=== PATIENT | male | born 2000 | race African-American/Black ===

== ENCOUNTER 2021-01-17 06:20 | Emergency (ER) | payer BC | END 2021-01-17 15:26 | disposition home or self-care (01) | LOC: ERS 06:20 | DX: S02.19XA Other fracture of base of skull, initial encounter for closed fracture (principal); S02.2XXA Fracture of nasal bones, initial encounter for closed fracture; Y04.8XXA Assault by other bodily force, initial encounter | CPT/HCPCS: 70450; 70486 ==

== ENCOUNTER 2023-11-20 22:17 | Emergency (ER) | payer BC, SELFPAY ==
[2023-11-20] MEDS ORDERED: Ondansetron PF 4 MG/2 ML Vial ONE (23:25)
[2023-11-21 00:03] LABS: #Basophils 0.04 10x3/uL (0.0-0.2); %Basophils 0.4 % (0.0-1.0); %Eosinophils 0.4 % (0.0-10.0); %Lymphocytes 21.4 % (21.0-51.0); %Neutrophils 70.4 % (42.0-75.0); Hematocrit 44.5 % (42.0-52.0); Hemoglobin 14.4 g/dL (14.0-18.0); Mean Corpuscular HGB CONC 32.4 g/dL (32.0-36.0); Mean Corpuscular Hemoglobin 23.7 pg (27.0-31.0); Mean Corpuscular Volume 73.2 fL (78.0-98.0); Mean Platelet Volume 8.9 fL (7.4-10.4); Platelet Count 366 10x3/uL (130-400); RBC Distribution Width 13.5 % (11.5-14.5); Red Blood Cell (RBC) Count 6.08 mill/uL (4.70-6.10)
[2023-11-21] MEDS ORDERED: Acetaminophen 500 MG TAB ONE (00:21)
[2023-11-21 00:23] LABS: Platelet Adequacy Comment Platelets Normal; RBC Morphology Within Normal Limits
[2023-11-21 00:27] LABS: Lipase 25 U/L (8-78)
[2023-11-21 00:29] LABS: Acetaminophen Less than 10 mcg/mL (Less than 10); Alcohol Less than 10.0 mg/dL (Less than 10); Salicylate Less than 8.0 mg/dL (Less than 8.0)
[2023-11-21 00:31] LABS: ALT (SGPT) 19 U/L (8-55); AST (SGOT) 25 U/L (5-34); Albumin 4.6 g/dL (3.5-5.0); Alkaline Phosphatase 67 U/L (40-110); Anion Gap 16 mmol/L (10-20); BUN (Urea Nitrogen) 12 mg/dL (8.9-20.6); Bilirubin, Total 0.8 mg/dL (0.2-1.2); CK (CPK) 316 U/L (30-200); Calc. Creatinine Clearance 0 mL/min (70-130); Calcium 9.9 mg/dL (7.8-10.44); Carbon Dioxide 24 mmol/L (22-29); Chloride 103 mmol/L (98-107); Estimated GFR 77; Globulin 3.4 g/dL (2.4-3.5); Glucose 102 mg/dL (70-105); Potassium 3.6 mmol/L (3.5-5.1); Sodium 139 mmol/L (136-145)
[2023-11-21] MEDS ORDERED: Ketorolac Tromethamine 30 MG (1 mL) VIAL ONE (01:26)
[2023-11-21 04:23] LABS: Bacteria/HPF None Seen HPF (None Seen); Bilirubin Negative (Negative); Blood, Urine Negative (Negative); CAUTI Indications for Culture Alt mental st,lethar; Calcium Oxalate Crystals Rare HPF (None Seen); Clarity Clear (Clear); Glucose, Urine (Dipstick) Normal (Negative); Ketone, Urine 40 mg/dL (Negative); Leukocyte Negative Leu/uL (Negative); Nitrite Negative (Negative); Protein, Urine (Dipstick) 30 mg/dL (Neg-Trace); RBC/HPF 0-3 HPF (0-3); Specific Gravity, Urine 1.031 (1.002-1.036); Squamous Epithelial 0-3 HPF (0-3); Urobilinogen 3 mg/dL (Less than 2); pH, Urine 6.5 (5.0-9.0)
[2023-11-21 04:28] LABS: Urine Culture Reflex No No
== END 2023-11-21 02:51 | disposition home or self-care (01) ==
LOC: ERS 22:17
DX: E86.0 Dehydration (principal)
CPT/HCPCS: 36416; 70450; 80053; 80307; 81001; 82550; 83690; 85025; 96374; 96375; J1885; J2405